=== PATIENT | male | born 1955 | race Caucasian/White ===

== ENCOUNTER 2018-12-03 12:35 | Inpatient (IN) | payer BC ==
[~2018-12-03] VITALS: Ht 182.9 cm; Wt 87.3 kg
[2018-12-03 13:17] LABS: BASOPHILS ABSOLUTE AUTO 0.04 K/mm3 (0.00-0.23); BASOPHILS PERCENT AUTO 0 % (0-2); EOSINOPHILS ABSOLUTE AUTO 0.01 K/mm3 (0.00-0.68); EOSINOPHILS PERCENT AUTO 0 % (0-6); Hematocrit 42.9 % (37.0-53.0); Hemoglobin 13.9 g/dL (13.5-17.5); IMMATURE GRAN ABSOLUTE AUTO 0.06 K/mm3 (0.00-0.10); IMMATURE GRAN PERCENT AUTO 0 % (0-1); LYMPHOCYTES ABSOLUTE AUTO 1.28 K/mm3 (0.84-5.20); LYMPHOCYTES PERCENT AUTO 8 % (21-46); MONOCYTES ABSOLUTE AUTO 1.34 K/mm3 (0.16-1.47); MONOCYTES PERCENT AUTO 9 % (4-13); Mean Corpuscular HGB 31.9 pg (26.0-34.0); Mean Corpuscular HGB Conc 32.4 g/dL (31.5-36.5); Mean Corpuscular Volume 98 fL (80-100); Mean Platelet Volume 10.3 fL (9.1-12.4); NEUTROPHILS ABSOLUTE AUTO 12.75 K/mm3 (1.96-9.15); NEUTROPHILS PERCENT AUTO 82 % (41-73); Platelet Count 173 K/mm3 (150-400); RDW Coefficient Variation 12.3 % (11.7-14.2); RDW Standard Deviation 44.6 fL (35.1-46.3); Red Blood Cell Count 4.36 M/mm3 (4.30-5.90); White Blood Cell Count 15.48 K/mm3 (4.00-11.30)
[2018-12-03 13:35] LABS: Alanine Aminotransfer (ALT/SGP 123 U/L (12-78); Albumin, Blood 3.9 g/dL (3.4-5.0); Albumin/Globulin Ratio 1.1 (0.8-1.8); Alk Phos 84 U/L (50-136); Anion Gap 8 mmol/L (6-16); Aspartate Aminotrans (AST/SGOT 165 U/L (12-37); Bilirubin, Total 0.8 mg/dL (0.1-1.0); Blood Urea Nitrogen 21 mg/dL (8-24); Bun/Creatinine Ratio 25.2 (12.0-20.0); CO2, Blood 25 mmol/L (21-32); Calcium, Blood 8.9 mg/dL (8.5-10.1); Chloride, Blood 108 mmol/L (98-108); Creatinine, Blood 0.83 mg/dL (0.60-1.20); Globulin, Blood 3.6 g/dL (2.2-4.0); Glomerular Filtration Rate >60 (60-); Glucose, Blood 107 mg/dL (70-99); Potassium, Blood 4.2 mmol/L (3.5-5.5); Sodium, Blood 141 mmol/L (136-145); Total Protein, Blood 7.5 g/dL (6.4-8.2)
[2018-12-03 15:18] LABS: Source, Urine Clean Catch
[2018-12-03 15:32] LABS: Appearance, Urine Clear (Clear); Bilirubin, Urine Neg (Neg); Blood, Urine 2+ (Neg); Color, Urine Yellow (P-Yellow); Glucose Qualitative, Urine Neg (Neg); Ketones, Urine 3+ (Neg); Leukocyte Esterase, Urine Neg (Neg); Nitrite, Urine Neg (Neg); Protein, Urine 1+ (Neg); Specific Gravity, Urine 1.025 (1.003-1.022); Urobilinogen, Urine 1+ (Normal)
[2018-12-03 15:57] LABS: Bacteria Few /hpf; Hyaline Casts 0-2 /lpf (0-2); Mucus Light (0-Heavy); Squamous Epithelial Cells Few /hpf (Few); White Blood Cells, Urine 0-2 /hpf (0-5)
--- NOTE | 2018-12-03 17:11 | NUR ---
echocardiogram complete
--- NOTE | 2018-12-03 19:06 | NUR ---
RECEIVED PT AT 1847 FROM THE PARKING STATION ATTENDANT FOLLOWING STENT PLACEMENT IN THE PROXIMAL RCA AND ON AN AGGRASTAT INFUSING AT 16.5 ML/HR. PT RECEIVED BOLUS OF AGGRASTAT OF 9.2 ML AND 11,200 UNITS OF HEPARIN IN THE PARKING STATION ATTENDANT. TR BAND TO RIGHT WRIST INFLATED WITH 11 CC AIR, NO S/S OF BLEEDING OR HEMATOMA, EXTREMITY IS WARM/GOOD CAP REFILL/DENIES NUMBNESS AND TINGLING, ARM BOARD IN PLACE. INSTRUCTED PT NOT TO USE THE RIGHT ARM, ORIENTED TO THE ROOM AND ROOM CONTROLS, AND INSTRUCTED ON HOW TO USE THE CALL LIGHT SYSTEM. VERBALIZED GOOD UNDERSTANDING. AT BEDSIDE. NSR ON MONITOR, HR 70'S, VSS. LUNGS CLEAR, ROOM AIR. TOLERATING FOOD AND WATER. DENIES NAUSEA AND VOMITING. PT RECEIVED ASPIRIN IN THE ER AND WAS GIVEN MAALOX AND PLAVIX IN THE HEART CENTER. BILATERAL AC IV SITES, AGGRASTAT AND NS INFUSING IN THE LEFT AC.
--- NOTE | 2018-12-03 19:15 | NUR ---
ASSUMED CARE OF PT. PT BACK FROM TEMPERATURE INSPECTOR. TR BAND AND ARM BOARD SECURELY IN PLACE. SITE SOFT AND NON TENDER WITH NO EVIDENCE OF ACTIVE BLEEDING. PT ALERT AND ORIENTED. AGGRASTAT RUNNING AT 0.15 MCG/KG/MIN AND NS WO. PT COMPLAINS OF 8/10 SHARP CHEST PAIN, WILL CALL DR LEE FOR PAIN RELIEF. VSS. SEE FULL SHIFT ASSESSMENT.
[2018-12-03] MEDS ORDERED: MELO7.5 PO (19:45)
--- NOTE | 2018-12-03 21:00 | NUR ---
SPOKE WITH DR LEE. NITRO GTT ORDERED TO MAINTAIN PAIN RELIEF OF 3/10 OR LESS. AGGRASTAT TO REMAIN INFUSING FOR 16 HOURS.
--- NOTE | 2018-12-03 23:41 | NUR ---
PT CONTINUES TO DENY PAIN SINCE NITRO GTT STARTED WILL CONTINUE TO TITRATE FOR AFFECT. PT RESTING WELL, WITH NO C/O NAUSEA OR VOMITING. VSS. TR BAND IN PLACE CSM INTACT WITH NO SIGNS OF ACTIVE BLEEDING. PT DROWSY BUT AROUSABLE. VSS.
--- NOTE | 2018-12-04 03:46 | NUR ---
PT COMPLAINING OF INCREASING CHEST PAIN 05/28. PT DESCRIBES "SHARP PAIN ACROSS THE CHEST". NITRO INCREASED TO 5 MCG/MIN.
[2018-12-04 03:50] LABS: BASOPHILS ABSOLUTE AUTO 0.04 K/mm3 (0.00-0.23); BASOPHILS PERCENT AUTO 0 % (0-2); EOSINOPHILS ABSOLUTE AUTO 0.08 K/mm3 (0.00-0.68); EOSINOPHILS PERCENT AUTO 1 % (0-6); Hematocrit 35.3 % (37.0-53.0); Hemoglobin 11.3 g/dL (13.5-17.5); IMMATURE GRAN ABSOLUTE AUTO 0.03 K/mm3 (0.00-0.10); IMMATURE GRAN PERCENT AUTO 0 % (0-1); LYMPHOCYTES ABSOLUTE AUTO 1.67 K/mm3 (0.84-5.20); LYMPHOCYTES PERCENT AUTO 17 % (21-46); MONOCYTES ABSOLUTE AUTO 1.17 K/mm3 (0.16-1.47); MONOCYTES PERCENT AUTO 12 % (4-13); Mean Corpuscular HGB 31.5 pg (26.0-34.0); Mean Corpuscular Volume 98 fL (80-100); Mean Platelet Volume 10.5 fL (9.1-12.4); NEUTROPHILS ABSOLUTE AUTO 6.78 K/mm3 (1.96-9.15); NEUTROPHILS PERCENT AUTO 69 % (41-73); Platelet Count 146 K/mm3 (150-400); RDW Coefficient Variation 12.3 % (11.7-14.2); RDW Standard Deviation 44.4 fL (35.1-46.3); Red Blood Cell Count 3.59 M/mm3 (4.30-5.90); White Blood Cell Count 9.77 K/mm3 (4.00-11.30)
[2018-12-04 04:13] LABS: Anion Gap 9 mmol/L (6-16); Blood Urea Nitrogen 18 mg/dL (8-24); Bun/Creatinine Ratio 22.7 (12.0-20.0); CO2, Blood 25 mmol/L (21-32); Calcium, Blood 7.9 mg/dL (8.5-10.1); Chloride, Blood 107 mmol/L (98-108); Creatinine, Blood 0.79 mg/dL (0.60-1.20); Glomerular Filtration Rate >60 (60-); Glucose, Blood 105 mg/dL (70-99); Potassium, Blood 3.8 mmol/L (3.5-5.5); Sodium, Blood 141 mmol/L (136-145)
--- NOTE | 2018-12-04 05:52 | NUR ---
SHIFT SUMMARY PT HAD 2 EPISODES OF SHARP CHEST PAIN THAT WERE RELIEVE BY NITRO GTT. PT CURRENTLY ON NITRO GTT @ 10 MCG/MIN MAINTAINING A PAIN LEVEL OF 3/10 OR LESS. PT PLACED ON 2L O2 DUE TO SATS RANGING BETWEEN 87-88%. SATS CURRENTLY AT 93%. TR BAND REMOVED AT 0200. ARM BOARD STILL IN PLACE, SITE NON-TENDER WITH NO SIGNS OF ACTIVE BLEEDING. PT DID EXPERIENCE A BLOODY NOSE THIS AM AND GOT A SMALL AMOUNT OF BLOOD ON THE ARM BOARD STRAPS. VSS. WILL REPORT TO DAYSHIFT NURSE.
--- NOTE | 2018-12-04 07:12 | NUR ---
PT AWAKE RESTING IN BED. NTG GTT AT 10. TR BAND SITE WNL TO RIGHT WRIST. PT C/O 05/28 CHEST PAIN TO RIGHT EPIGASTRIC AREA. PT STATES THE PAIN IS SHARP AND WORSE WITH A DEEP BREATH. PT DENIES NAUSEA. AND STATES AND ANSWERS YES TO SOB, "WHEN I TRY TO TAKE A DEEP BREATH IT HURTS". POSSIBLE PLEURAL PAIN. NTG INCREASED TO 15 THIS HELPED EARLIER, WILL NOTIFY DR LEE. PT CALM AND APPEARS TO BE IN NO CURRENT DISTRESS.
--- NOTE | 2018-12-04 07:27 | NUR ---
PT STATES HIS PAIN IS IMPROVING AT A 4/10. AT BEDSIDE. DR AMBRIZ IN UNIT AND GIVEN UPDATE. NTG AT 15
--- NOTE | 2018-12-04 07:58 | NUR ---
DR AMBRIZ IN TO SEE PT, SEE NEW ORDERS. DR MADDOX CALLED AND GIVEN COMPLETE UPDATE. OKAY TO GIVE TORADOL IV. AGGRASTAT TO INFUSE FOR 12 HR THEN OFF. HEPARIN GTT TO FOLLOW AGGRASTAT GTT; PHARM TO MANAGE. EKG TO BE TAKEN.
--- NOTE | 2018-12-04 09:31 | NUR ---
PT DENIES C/O PAIN, NYG GTT DECREASED TO 5.
--- NOTE | 2018-12-04 10:40 | NUR ---
DR MADDOX IN UNIT, GIVEN UPDATE ON PT. PT DENIES PAIN. TROPONIN REVIEWED.
--- NOTE | 2018-12-04 10:54 | NUR ---
PT SLEEPING, NTG GTT PLACED ON STANDBY
--- NOTE | 2018-12-04 11:37 | NUR ---
AGGRASTAT DISCONTINUED AND HEPARIN GTT STARTED PER PHARMACY ORDERS
--- NOTE | 2018-12-04 19:45 | NUR ---
ASSUMED CARE OF PT PT ALERT AND ORIENTED SITTING UP IN BED WATCHING TV. PT DENIES PAIN AT THIS TIME. HEPARIN RUNNING AT 13 UNITS/KG/HR. NEW ARM BOARD PLACED WITH REMOVAL TIME SET AT 0200 12/05/18. RADIAL SITE SOFT AND NONTENDER WITH NO SIGNS OF ACTIVE BLEEDING. PT REMINDED TO KEEP ARM BOARD IN PLACE AND TO NOT MOVE WRIST. PT'S IS AT BEDSIDE. SEE FULL SHIFT ASSESSMENT.
--- NOTE | 2018-12-05 05:30 | NUR ---
SHIFT SUMMARY NO ACUTE CHANGES OVERNIGHT. PT ALERT AND ORIENTED. PT HAS DENIED CHEST PAIN THROUGHOUT SHIFT, HAS REMAINED AFEBRILE AND VSS. PT IS ON 17 UNITS/KG/MIN HEPARIN DOSED BY PHARMACY. WILL REPORT TO DAYSHIFT NURSE.
--- NOTE | 2018-12-05 07:39 | NUR ---
PT AWAKE AND ALERT. DENIES C/O PAIN. VSS. DR COHEN AT BEDSIDE. HEPARIN GTT AT 17U/KG/HR. LE TO BE DISCHARGED HOME IF LE Sorensen DETENTION OFFICER
--- NOTE | 2018-12-05 09:47 | NUR ---
DR MADDOX IN TO SEE PT. PT TO BE DISCHARGED HOME TODAY. HEPARIN GTT STOPPED PER . PT OOB TO CHAIR, TOLERATED WELL
--- NOTE | 2018-12-05 10:13 | NUR ---
DR COHEN NOTIFIED OF DR MADDOX'S VISIT. AWAITING DISCHARGE ORDERS
[2018-12-05] MEDS ORDERED: ASPI81CH PO (10:53)
[2018-12-05] MEDS ORDERED: ATOR40TA PO (10:54)
[2018-12-05] MEDS ORDERED: CLOP75 PO (10:54)
[2018-12-05] MEDS ORDERED: ABAT250V (10:55)
--- NOTE | 2018-12-05 11:45 | NUR ---
VERBAL AND WRITTEN DISCHARGE INFORMATION GIVEN TO PT AND PT'S WITH CLEAR UNDERSTANDING. MOBIC TO BE STOPPED; CLARIFIED ON PT'S HOME MED PAPERS. PT MAY TAKE ASPIRIN 650MG Q 6-[address] MADDOX FOR PAIN. THIS HAND WRITTEN ON PT'S MED SHEET. MEDS REVIEWED AND FAXED INTO [facility]. TOPROL XL REVIEWED PT DID NOT START THIS IN HOSP AND WAS HELD TODAY PRIOR TO DISCHARGE D/T PARAMETERS. PT EDUCATED TO TAKE BP AND HEART RATE PRIOR TO TOPROL; PT HAS BP MACHINE AT HOME AND WAS TAUGHT HOW TO TAKE MANUAL PULSE. RADIAL ACCESS DISCHARGE PAPER GIVEN, PLAVIX/ASA CONTRACT GIVEN. PT INSTRUCTED TO CALL BACK WITH ANY QUESTIONS CONCERNS.
--- NOTE | 2018-12-05 11:55 | NUR ---
PT DISCHARGED HOME IN STABLE CONDITION; ESCORTED BY .
[2018-12-06] MEDS ORDERED: **INCOMPLETE MED REC (17:01)
[2018-12-06] MEDS ORDERED: ATORVASTATIN CA80 MG PO (17:03)
[2018-12-06] MEDS ORDERED: CLOP75 PO (17:03)
[2018-12-06] MEDS ORDERED: Aspirin EC81 MG PO (17:04)
[2018-12-06] MEDS ORDERED: MELO7.5 PO (17:05)
[2018-12-06] MEDS ORDERED: PANT40 PO (17:06)
[2018-12-06] MEDS ORDERED: METO25ER PO (17:06)
== END 2018-12-05 11:54 | disposition home or self-care (01) | DRG 247 ==
LOC: ER 12:35 → PCU 16:48 → ICUE 16:48
PROVIDERS: Physician Assistant; ADMIT Hospitalist
PROC: B2111ZZ Fluoroscopy of Multiple Coronary Arteries using Low Osmolar Contrast (ICD-10-PCS; principal; 2018-12-03)
PROC: 02C03ZZ Extirpation of Matter from Coronary Artery, One Artery, Percutaneous Approach (ICD-10-PCS; 2018-12-03)
PROC: 027034Z Dilation of Coronary Artery, One Artery with Drug-eluting Intraluminal Device, Percutaneous Approach (ICD-10-PCS; 2018-12-03)
DX: I21.19 ST elevation (STEMI) myocardial infarction involving other coronary artery of inferior wall (principal); I31.9 Disease of pericardium, unspecified; Z85.51 Personal history of malignant neoplasm of bladder; Z87.891 Personal history of nicotine dependence; M19.90 Unspecified osteoarthritis, unspecified site; D72.829 Elevated white blood cell count, unspecified; R19.7 Diarrhea, unspecified; D64.9 Anemia, unspecified; D69.6 Thrombocytopenia, unspecified
CPT/HCPCS: 36415; 80048; 80053; 81001; 83690; 84484; 85025; 85347; 85651; 85730; 86141; 90686; 93005; 93010; 93306; 93458; 96361; 96374; 99152; 99153; 99285-25; C1725; C1757; C1769; C1874; C1887; C1894; C9600; G0008; J1644; J1885; J2250; J2405; J3010; J3246; J7030; J7042; Q9967

== ENCOUNTER 2018-12-06 16:41 | Inpatient (IN) | payer BC ==
[~2018-12-06] VITALS: Ht 182.9 cm; Wt 83.5 kg
[~2018-12-06 16:41] MED LIST: ABAT250V; ASPI81CH PO; ATOR40TA PO; CLOP75 PO; MELO7.5 PO
[2018-12-06] MEDS ORDERED: **INCOMPLETE MED REC (17:01)
[2018-12-06] MEDS ORDERED: CLOP75 PO (17:03)
[2018-12-06] MEDS ORDERED: ATORVASTATIN CA80 MG PO (17:03)
[2018-12-06] MEDS ORDERED: Aspirin EC81 MG PO (17:04)
[2018-12-06] MEDS ORDERED: MELO7.5 PO (17:05)
[2018-12-06] MEDS ORDERED: PANT40 PO (17:06)
[2018-12-06] MEDS ORDERED: METO25ER PO (17:06)
[2018-12-06 17:10] LABS: BASOPHILS ABSOLUTE AUTO 0.03 K/mm3 (0.00-0.23); BASOPHILS PERCENT AUTO 0 % (0-2); EOSINOPHILS ABSOLUTE AUTO 0.27 K/mm3 (0.00-0.68); EOSINOPHILS PERCENT AUTO 3 % (0-6); Hematocrit 38.6 % (37.0-53.0); Hemoglobin 12.9 g/dL (13.5-17.5); IMMATURE GRAN ABSOLUTE AUTO 0.02 K/mm3 (0.00-0.10); IMMATURE GRAN PERCENT AUTO 0 % (0-1); LYMPHOCYTES ABSOLUTE AUTO 1.31 K/mm3 (0.84-5.20); LYMPHOCYTES PERCENT AUTO 16 % (21-46); MONOCYTES ABSOLUTE AUTO 0.84 K/mm3 (0.16-1.47); MONOCYTES PERCENT AUTO 10 % (4-13); Mean Corpuscular HGB 31.7 pg (26.0-34.0); Mean Corpuscular HGB Conc 33.4 g/dL (31.5-36.5); NEUTROPHILS ABSOLUTE AUTO 5.75 K/mm3 (1.96-9.15); NEUTROPHILS PERCENT AUTO 70 % (41-73); Platelet Count 224 K/mm3 (150-400); RDW Standard Deviation 42.1 fL (35.1-46.3); Red Blood Cell Count 4.07 M/mm3 (4.30-5.90); White Blood Cell Count 8.22 K/mm3 (4.00-11.30)
[2018-12-06 17:19] LABS: Mean Corpuscular Volume 95 fL (80-100)
[2018-12-06 17:32] LABS: Alanine Aminotransfer (ALT/SGP 65 U/L (12-78); Albumin, Blood 3.4 g/dL (3.4-5.0); Albumin/Globulin Ratio 0.9 (0.8-1.8); Alk Phos 89 U/L (50-136); Anion Gap 8 mmol/L (6-16); Aspartate Aminotrans (AST/SGOT 27 U/L (12-37); Bilirubin, Total 0.5 mg/dL (0.1-1.0); Blood Urea Nitrogen 16 mg/dL (8-24); Bun/Creatinine Ratio 18.8 (12.0-20.0); CO2, Blood 27 mmol/L (21-32); Calcium, Blood 8.7 mg/dL (8.5-10.1); Chloride, Blood 107 mmol/L (98-108); Creatinine, Blood 0.85 mg/dL (0.60-1.20); Globulin, Blood 3.8 g/dL (2.2-4.0); Glomerular Filtration Rate >60 (60-); Glucose, Blood 107 mg/dL (70-99); Potassium, Blood 3.4 mmol/L (3.5-5.5); Sodium, Blood 142 mmol/L (136-145); Total Protein, Blood 7.2 g/dL (6.4-8.2)
[2018-12-06 18:28] LABS: International Normalized Ratio 1.19; Prothrombin Time Results 12.4 Sec (9.7-11.5)
[2018-12-07 05:24] LABS: Hematocrit 34.9 % (37.0-53.0); Hemoglobin 11.8 g/dL (13.5-17.5); Mean Corpuscular HGB 31.5 pg (26.0-34.0); Mean Corpuscular HGB Conc 33.8 g/dL (31.5-36.5); Mean Corpuscular Volume 93 fL (80-100); Mean Platelet Volume 9.9 fL (9.1-12.4); Platelet Count 201 K/mm3 (150-400); RDW Standard Deviation 40.9 fL (35.1-46.3); Red Blood Cell Count 3.75 M/mm3 (4.30-5.90); White Blood Cell Count 7.84 K/mm3 (4.00-11.30)
--- NOTE | 2018-12-07 05:41 | NUR ---
Rn summary: Patient was admitted at 1954 last evening to room 313. Patient is alert and oriented. Pt admitted for melena in the stool. Guiac possitive in the ED. Pt has had no further stools this shift. Pt did have clear liquids at the beginning of shift with no nausia. Pt does have some right upper thigh and hip pain. He has history of osteoarthiritis. Pt tele shows NSR rate 75. Abdomen is soft with active bowel tones. Pt is on a protonix drip. Pt has been NPO after MN. Consult called in to Dr. Mendenhall for GI. Pt is independant in room. No c/o pain. He has slept only fair. Pt refused SCD's. He is on plavix and states he walked a mile yesterday. Call light in reach.
[2018-12-07 06:16] LABS: Anion Gap 8 mmol/L (6-16); Blood Urea Nitrogen 12 mg/dL (8-24); Bun/Creatinine Ratio 12.9 (12.0-20.0); CO2, Blood 24 mmol/L (21-32); Calcium, Blood 8.4 mg/dL (8.5-10.1); Chloride, Blood 111 mmol/L (98-108); Creatinine, Blood 0.93 mg/dL (0.60-1.20); Glomerular Filtration Rate >60 (60-); Glucose, Blood 98 mg/dL (70-99); Potassium, Blood 3.8 mmol/L (3.5-5.5); Sodium, Blood 143 mmol/L (136-145)
--- NOTE | 2018-12-07 09:10 | NUR ---
Recieved permission from patient to assist in providing care for tomorrow 12/08/18 from 1300 to 1530.
--- NOTE | 2018-12-07 11:31 | NUR ---
PT GAVE STUDENT NURSE PERMISSION TO ASSIST WITH CARE ON 12/08/18.
--- NOTE | 2018-12-07 15:13 | NUR ---
REFUSING ANY TYPE OF COLON SCOPE AT THIS TIME PATIENT REFUSING COLON SCOPE D/T NEGATIVE EXPERIANCE IN PAST. HE WOULD LIKE TO TALK TO DOCTOR FIRST. I SPOKE TO DR. TEJADA ON PHONE AT 1500 12/07 TO ALERT OF OF SITUATION. PATIENT PREPED AND READY FOR EGD
--- NOTE | 2018-12-07 16:48 | NUR ---
INTO SDS VIA [employer]. PT A&OX3. DENIES PAIN OR NAUSA. SKIN APPEARS PALE AND DIAPHORETIC. LUNGS CLEAR. ECG SHOWS SR WITH RATE 60'S. NPO STATUS CONFIRMED. HISTORY AND ALLERGIES REVIEWED.
--- NOTE | 2018-12-07 17:24 | NUR ---
12/07/18 1724 Marybel Hooker History, Chart, Medications and Allergies reviewed before start of procedure. Patient confirms NPO status and agrees with scheduled surgery. MONITOR INTACT WITH CONTINUOUS PULSE OXIMETRY AND INTERMITTENT BP.
[2018-12-07] MEDS ORDERED: PANT40 PO (19:21)
--- NOTE | 2018-12-07 19:35 | NUR ---
PATIENT DCing. DC PAPERS COMPLETE AND SIGNED. IV REMOVED. PATIENT HAS ALL PERSONAL BELONINGS. PRESENT TO TAKE PATIENT HOME.
== END 2018-12-07 19:40 | disposition home or self-care (01) | DRG 377 ==
LOC: ER 16:41 → MEDS 18:14
PROVIDERS: Emergency Medicine; Nurse Practitioner Acute Care; Student in an Organized Health Care Education/Training Program; ADMIT Internal Medicine
PROC: 0DJ08ZZ Inspection of Upper Intestinal Tract, Via Natural or Artificial Opening Endoscopic (ICD-10-PCS; principal; 2018-12-07 17:00)
PROC: 0DJD8ZZ Inspection of Lower Intestinal Tract, Via Natural or Artificial Opening Endoscopic (ICD-10-PCS; 2018-12-07 17:00)
DX: K25.4 Chronic or unspecified gastric ulcer with hemorrhage (principal); I21.19 ST elevation (STEMI) myocardial infarction involving other coronary artery of inferior wall; I25.10 Atherosclerotic heart disease of native coronary artery without angina pectoris; M19.90 Unspecified osteoarthritis, unspecified site; Z95.5 Presence of coronary angioplasty implant and graft; Z87.891 Personal history of nicotine dependence; Z85.51 Personal history of malignant neoplasm of bladder; K21.9 Gastro-esophageal reflux disease without esophagitis; Z79.82 Long term (current) use of aspirin; Z79.02 Long term (current) use of antithrombotics/antiplatelets; E87.6 Hypokalemia; C67.9 Malignant neoplasm of bladder, unspecified
CPT/HCPCS: 36415; 80048; 80053; 82272; 85025; 85027; 85610; 86850; 86900; 86901; 96365; 96366; 99285-25; C9113; J2250; J7030; J7120

== ENCOUNTER 2019-12-15 22:59 | Emergency (ER) | payer BC ==
[~2019-12-15] VITALS: Ht 182.9 cm; Wt 86.2 kg
[~2019-12-15 22:59] MED LIST changes: +**INCOMPLETE MED REC; +ATORVASTATIN CA80 MG PO; +Aspirin EC81 MG PO; +METO25ER PO; +PANT40 PO
[2019-12-16 01:47] LABS: Alanine Aminotransfer (ALT/SGP 29 U/L (12-78); Albumin, Blood 3.7 g/dL (3.4-5.0); Albumin/Globulin Ratio 1.3 (0.8-1.8); Alk Phos 61 U/L (50-136); Anion Gap 6 mmol/L (6-16); Aspartate Aminotrans (AST/SGOT 22 U/L (12-37); Bilirubin, Total 0.3 mg/dL (0.1-1.0); Blood Urea Nitrogen 20 mg/dL (8-24); Bun/Creatinine Ratio 16.7 (12.0-20.0); CO2, Blood 26 mmol/L (21-32); Calcium, Blood 8.4 mg/dL (8.5-10.1); Chloride, Blood 110 mmol/L (98-108); Globulin, Blood 2.9 g/dL (2.2-4.0); Glomerular Filtration Rate >60 (60-); Glucose, Blood 128 mg/dL (70-99); Potassium, Blood 3.8 mmol/L (3.5-5.5); Sodium, Blood 142 mmol/L (136-145); Total Protein, Blood 6.6 g/dL (6.4-8.2)
[2019-12-16 01:55] LABS: BASOPHILS ABSOLUTE AUTO 0.06 K/mm3 (0.00-0.23); BASOPHILS PERCENT AUTO 1 % (0-2); EOSINOPHILS ABSOLUTE AUTO 0.28 K/mm3 (0.00-0.68); EOSINOPHILS PERCENT AUTO 3 % (0-6); Hematocrit 30.7 % (37.0-53.0); Hemoglobin 10.1 g/dL (13.5-17.5); IMMATURE GRAN ABSOLUTE AUTO 0.04 K/mm3 (0.00-0.10); IMMATURE GRAN PERCENT AUTO 1 % (0-1); LYMPHOCYTES PERCENT AUTO 20 % (21-46); MONOCYTES ABSOLUTE AUTO 0.67 K/mm3 (0.16-1.47); MONOCYTES PERCENT AUTO 8 % (4-13); Mean Corpuscular HGB 31.2 pg (26.0-34.0); Mean Corpuscular HGB Conc 32.9 g/dL (31.5-36.5); Mean Corpuscular Volume 95 fL (80-100); Mean Platelet Volume 10.8 fL (9.1-12.4); NEUTROPHILS ABSOLUTE AUTO 5.57 K/mm3 (1.96-9.15); NEUTROPHILS PERCENT AUTO 68 % (41-73); Platelet Count 169 K/mm3 (150-400); RDW Coefficient Variation 12.7 % (11.7-14.2); RDW Standard Deviation 43.1 fL (35.1-46.3); Red Blood Cell Count 3.24 M/mm3 (4.30-5.90); White Blood Cell Count 8.22 K/mm3 (4.00-11.30)
[2019-12-16 02:55] LABS: Source, Urine Catheter
[2019-12-16 03:01] LABS: Bilirubin, Urine Neg (Neg); Blood, Urine 5+ (Neg); Glucose Qualitative, Urine Neg (Neg); Ketones, Urine 1+ (Neg); Leukocyte Esterase, Urine 1+ (Neg); Nitrite, Urine Neg (Neg); Protein, Urine 4+ (Neg); Specific Gravity, Urine 1.025 (1.003-1.022); Urobilinogen, Urine NORM (Normal)
[2019-12-16 03:10] LABS: Amorphous Heavy (0-Heavy); Appearance, Urine Turbid (Clear); Bacteria Few /hpf; Color, Urine Brown (P-Yellow); Red Blood Cells, Urine TNTC /hpf (0-2); Squamous Epithelial Cells Not Seen /hpf (Few)
[2019-12-16] MEDS ORDERED: Pyridium200 MG PO (04:34)
== END 2019-12-16 04:49 | disposition home or self-care (01) ==
LOC: ER 22:59
PROVIDERS: Physician Assistant
DX: N32.9 Bladder disorder, unspecified (principal); R31.9 Hematuria, unspecified; Z87.891 Personal history of nicotine dependence; Z79.899 Other long term (current) drug therapy; Z88.5 Allergy status to narcotic agent
CPT/HCPCS: 36415; 51798; 74177; 80053; 81001; 85025; 87086; 96374; 96375; 99283-25; A9270-GY; J1200; J2930; Q9967

== ENCOUNTER 2021-09-26 06:52 | Day surgery (SDC) | payer MEDICARE, BC ==
[~2021-09-26] VITALS: Ht 182.9 cm; Wt 91.5 kg
[~2021-09-26 06:52] MED LIST changes: +Pyridium200 MG PO
--- NOTE | 2021-09-26 07:57 | NUR ---
09/26/21 0757 Imani Forman PT. WITH DENTURES IN. DR. RAMOS AWARE, OK TO KEEP IN FOR SURGERY.
--- NOTE | 2021-09-26 08:45 | NUR ---
09/26/21 0845 Vicenta Elaine PT RESTING COMFORTABLY IN RECLINER WITH ICE UNDER OPERATIVE ARM. REPORTS NO PAIN. NO QUESTIONS OR CONCERNS AT THIS TIME.
== END 2021-09-26 08:56 | disposition home or self-care (01) ==
LOC: ORSCSDS 06:52
PROVIDERS: Orthopaedic Surgery
PROC: 01N50ZZ Release Median Nerve, Open Approach (ICD-10-PCS; principal; 2021-09-26 08:00)
DX: G56.01 Carpal tunnel syndrome, right upper limb (principal); I10 Essential (primary) hypertension; I25.2 Old myocardial infarction; Z87.891 Personal history of nicotine dependence; E78.5 Hyperlipidemia, unspecified; Z79.899 Other long term (current) drug therapy; Z79.82 Long term (current) use of aspirin
CPT/HCPCS: J0690; J2704; J7120

== ENCOUNTER 2023-05-26 12:45 | Day surgery (SDC) | payer MEDICARE, BC | END 2023-05-26 13:30 | disposition home or self-care (01) | LOC: ORSCSDS 12:45 | DX: Z12.11 Encounter for screening for malignant neoplasm of colon (principal); Z53.9 Procedure and treatment not carried out, unspecified reason ==